=== PATIENT | female | born 1940 | race Caucasian/White ===

== ENCOUNTER → 2017-06-08 | Outpatient (CLI) | payer OTHER, BC ==
[~2017-06-08] MED LIST: ALLEGRA ALLERGY60 MG PO; LOTREL 5-10 MG1 EACH PO; NORCO 5-325 TA1 EACH PO; OMEGA-31000 M1 PO; VITAMIN D3400 UNI1 PO
== END ==
LOC: RAD 09:18
DX: R05 Cough (principal)